=== PATIENT | female | born 1950 | race Caucasian/White ===

== ENCOUNTER 2020-05-11 15:52 | Inpatient (IN) | payer MEDICARE, OTHER ==
--- NOTE | 2020-05-11 16:18 | ER Document Report ---
ED Respiratory Problem - General Chief Complaint: Cough Stated Complaint: COUGH,SHORT OF BREATH,CHEST PAIN Time Seen by Provider: 05/11/20 16:14 Primary Care Provider: KRISTINE CONSTANTINO NP-C [Primary Care Provider] - Follow up as needed Notes: Patient is a 69-year-old female who presents emergency department with a chief complaint of cough, shortness of breath, and difficulty breathing for the past week. Patient states that she has body aches. Patient has history of pneumonia. She also has chronic back pain. Patient takes gabapentin, oxycodone as needed, and Prozac. - Related Data Allergies/Adverse Reactions: atorvastatin calcium [From Lipitor] Adverse Reaction (Mild, Verified 05/07/14 01:58) Stiffness in joints simvastatin [From Zocor] Adverse Reaction (Mild, Verified 05/07/14 01:58) Stiffness in joints Past Medical History - General Information source: Patient - Social History Smoking Status: Never Smoker Family History: None, Reviewed & Not Pertinent - Past Medical History Cardiac Medical History: Reports: Hx Hypercholesterolemia Pulmonary Medical History: Reports: Hx Pneumonia Musculoskeletal Medical History: Reports Hx Arthritis Psychiatric Medical History: Reports: Hx Depression Past Surgical History: Reports: Hx Cholecystectomy, Hx Orthopedic Surgery - hip, back, shoulders - Immunizations Hx Diphtheria, Pertussis, Tetanus Vaccination: Yes Review of Systems - Review of Systems Notes: REVIEW OF SYSTEMS: CONSTITUTIONAL : Denies recent illness. Denies recent unintentional weight loss. Denies fever, chills, or sweats. EENT: Denies eye, ear, throat, or mouth pain, discharge, or symptoms. Denies nasal or sinus congestion. CARDIOVASCULAR: Denies chest pain. RESPIRATORY: See HPI. GASTROINTESTINAL: Denies nausea, vomiting, and diarrhea. Denies abdominal pain. Denies constipation. GENITOURINARY: Denies difficulty urinating, burning, blood in urine, urgency or frequency. MUSCULOSKELETAL: Denies neck and back pain. Denies joint pain or swelling. SKIN: Denies rash, itchiness, or lesions HEMATOLOGIC : Denies easy bruising or bleeding. LYMPHATIC: Denies swollen, painful, enlarged glands. NEUROLOGICAL: Denies no numbness or tingling denies weakness. Denies headache. Denies altered mental status. Denies alteration in speech. PSYCHIATRIC: Denies stress, anxiety, alteration in sleep patterns, or depression. All other systems reviewed and negative. Physical Exam - Vital signs Vitals: Temp Pulse Resp BP Pulse Ox 98.5 F 88 20 152/73 H 86 L 05/11/20 16:21 05/11/20 16:21 05/11/20 16:21 05/11/20 16:21 05/11/20 16:21 - Notes Notes: PHYSICAL EXAMINATION: GENERAL: Appears well, healthy, well-nourished, no acute distress. HEAD: Normocephalic, atraumatic. EYES: PERRL, conjunctiva normal, all extraocular movements intact, sclera nonicteric ENT: Moist mucous membranes. NECK: Supple, no noticeable swelling, redness, rash. Normal range of motion. LUNGS: Diminished lung sounds in all lung chan. CARDIOVASCULAR: S1-S2, regular rate, regular rhythm. Radial pulses 2+, normal. ABDOMEN: Normoactive bowel sounds. Soft, nontender, no guarding, no rebound tenderness, and no masses palpated. EXTREMITIES: Normal strength and range of motion, no pitting or edema. No cyanosis. NEUROLOGICAL: Moves all extremities upon command. Strength 5/5 in all extremities. PSYCH: Normal mood, normal affect. SKIN: Warm, dry. No rash, lesions, ulcerations noted. Normal skin turgor. Course - Re-evaluation Re-evalutation: 05/11/20 18:24 Hematology is unremarkable. No leukocytosis noted. Coagulation studies are unremarkable. Blood gas shows PO2 62% on room air. Patient was placed on 2 L nasal cannula. Troponin is unremarkable. BNP is 618. Chemistries are unremarkable. Chest x-ray did not show any acute findings. CTA of the chest ordered. 05/11/20 20:43 CT of the chest shows groundglass opacities, consistent with possible COVID-19. I advised the patient that I would like her to be admitted. She states that she would to go home. I told her that if her oxygen saturation on room air while walking stays greater than 93% on room air, then I can send her home safely, but if her oxygen saturation drops, I prefer she be admitted. We will give her a gram of Rocephin. The patient was evaluated during the global COVID-19 pandemic and that diagnosis was suspected/considered upon their initial presentation. Their evaluation, treatment and testing was consistent with current guidelines for patients who present with complaints or symptoms that may be related to COVID-19. 05/11/20 20:51 Patient was walked in the room and oxygen saturation went down to 89% on room air. Patient then dropped further down to 82%, but then went up as she was put on 2 L of oxygen. Advised patient that she needs to be admitted for monitoring. - Vital Signs Vital signs: Temp Pulse Resp BP Pulse Ox 98.5 F 88 18 152/73 H 100 05/11/20 16:21 05/11/20 16:21 05/11/20 19:00 05/11/20 16:21 05/11/20 19:00 - Laboratory Result Diagrams: 05/11/20 17:25 05/11/20 17:25 Laboratory results interpreted by me: 05/11/20 05/11/20 05/11/20 17:20 17:25 17:25 Lymph % (Auto) 11.2 L Carbonic Acid 0.88 L ABG pH 7.49 H ABG pCO2 29.4 L ABG pO2 62.6 L ABG O2 Saturation 93.9 L Sodium 134.9 L NT-Pro-B Natriuret Pep 05/11/20 17:25 Lymph % (Auto) Carbonic Acid ABG pH ABG pCO2 ABG pO2 ABG O2 Saturation Sodium NT-Pro-B Natriuret Pep 618 H Discharge - Discharge Clinical Impression: Hypoxemia, Shortness of breath, Cough, Suspected COVID-19 virus infection Pneumonia Qualifiers: Pneumonia type: due to unspecified organism Laterality: unspecified laterality Lung location: unspecified part of lung Qualified Code(s): J18.9 - Pneumonia, unspecified organism Condition: Stable Disposition: ADMITTED INPATIENT Admitting Provider: Amando (Hospitalist) Unit Admitted: Medical Floor - COVID floor Referrals: KRISTINE CONSTANTINO NP-C [Primary Care Provider] - Follow up as needed
--- NOTE | 2020-05-11 16:58 | RADIOLOGY REPORT (SQ) ---
EXAM DESCRIPTION: CHEST SINGLE VIEW IMAGES COMPLETED DATE/TIME: 05/11/2020 4:37 pm REASON FOR STUDY: cough COMPARISON: 05/03/2014 EXAM PARAMETERS: NUMBER OF VIEWS: One view. TECHNIQUE: Single frontal radiographic view of the chest acquired. RADIATION DOSE: NA LIMITATIONS: None. FINDINGS: LUNGS AND PLEURA: No opacities, masses or pneumothorax. No pleural effusion. MEDIASTINUM AND HILAR STRUCTURES: No masses. Contour normal. HEART AND VASCULAR STRUCTURES: Heart normal in size. Normal vasculature. BONES: No acute findings. HARDWARE: None in the chest. OTHER: No other significant finding. IMPRESSION: NO ACUTE RADIOGRAPHIC FINDING IN THE CHEST. TECHNICAL DOCUMENTATION: JOB ID: [id number] 2010 [employer]- All Rights Reserved Reading location - IP/workstation name: [email or web address]
[2020-05-11 17:41] LABS: ARTERIAL BLOOD BASE EXCESS -0.3 mmol/L; ARTERIAL BLOOD FIO2 21%; ARTERIAL BLOOD H2CO3 0.88 mmol/L (1.05-1.35); ARTERIAL BLOOD HCO3 21.9 mmol/L (20-24); ARTERIAL BLOOD O2 SATURATION 93.9 % (94-98); ARTERIAL BLOOD PCO2 29.4 mmHg (35-45); ARTERIAL BLOOD PH 7.49 (7.35-7.45); ARTERIAL BLOOD PO2 62.6 mmHg (80-100); ARTERIAL BLOOD TOTAL CO2 22.8 mmol/L (21-25)
[2020-05-11 17:45] LABS: ABSOLUTE BASOPHILS # (AUTO) 0.1 10^3/uL (0.0-0.2); ABSOLUTE EOSINOPHILS # (AUTO) 0.2 10^3/uL (0.0-0.6); ABSOLUTE LYMPHOCYTES (AUTO) 0.9 10^3/uL (0.5-4.7); ABSOLUTE MONOCYTES (AUTO) 0.8 10^3/uL (0.1-1.4); EOSINOPHILS % (AUTO) 2.8 % (0-6); HEMATOCRIT 38.2 % (36.0-47.0); LYMPHOCYTES % (AUTO) 11.2 % (13-45); MEAN CORPUSCULAR HEMOGLOBIN 29.8 pg (27.0-33.4); MEAN CORPUSCULAR VOLUME 88 fl (80-97); MONOCYTES % (AUTO) 10.3 % (3-13); PLATELET COUNT 271 10^3/uL (150-450); RED BLOOD COUNT 4.35 10^6/uL (3.72-5.28); RED CELL DISTRIBUTION WIDTH 12.6 % (11.5-14.0); SEGMENTED NEUTROPHILS % (AUTO) 74.7 % (42-78); TOTAL CELLS COUNTED % (AUTO) 100 %; WHITE BLOOD COUNT 8.1 10^3/uL (4.0-10.5)
[2020-05-11 17:54] LABS: INTERNATIONAL RATION (INR) 1.02; PROTHROMBIN TIME 13.6 SEC (11.4-15.4)
[2020-05-11 17:55] LABS: PARTIAL THROMBOPLASTIN TIME 33.9 SEC (23.5-35.8)
[2020-05-11 18:01] LABS: ALBUMIN 3.7 g/dL (3.5-5.0); ALKALINE PHOSPHATASE 89 U/L (38-126); ANION GAP 6 (5-19); ASPARTATE AMINO TRANSFERASE 27 U/L (14-36); BILIRUBIN,DIRECT 0.3 mg/dL (0.0-0.4); BILIRUBIN,TOTAL 0.6 mg/dL (0.2-1.3); BLOOD UREA NITROGEN 19 mg/dL (7-20); CARBON DIOXIDE 25 mmol/L (22-30); CHLORIDE 104 mmol/L (98-107); GLUCOSE 99 mg/dL (75-110); TOTAL PROTEIN 6.4 g/dL (6.3-8.2)
[2020-05-11 18:12] LABS: NT PRO BNP 618 pg/mL (<125)
[2020-05-11 18:13] LABS: TROPONIN I < 0.012 ng/mL
--- NOTE | 2020-05-11 20:04 | RADIOLOGY REPORT (SQ) ---
EXAM DESCRIPTION: CTA CHEST IMAGES COMPLETED DATE/TIME: 05/11/2020 6:41 pm REASON FOR STUDY: cough; COMPARISON: Chest radiograph same date. Chest radiograph 05/03/2014 TECHNIQUE: CT scan of the chest performed using helical scanning technique with dynamic intravenous contrast injection. Images reviewed with lung, soft tissue and bone windows. Reconstructed coronal and sagittal MPR images reviewed. Additional 3 dimensional post-processing performed to develop Maximal Intensity Projection images (SC P). All images stored on PACS. All CT scanners at this facility use dose modulation, iterative reconstruction, and/or weight based d osing when appropriate to reduce radiation dose to as low as reasonably achievable (ALARA). [facility]: Dose Right [facility]: CareDose [facility]: Dose Right [facility]: Teradose 4D [facility]: apomio CONTRAST TYPE AND DOSE: contrast/concentration: Isovue 350.00 mmol/ml; Total Contrast Delivered: 65. 0 ml; Total Saline Delivered: 33.7 ml Contrast bolus optimized for the pulmonary arteries. Not diagnostic for the aorta. RENAL FUNCTION: GFR > 60. RADIATION DOSE: CT Rad equipment meets quality standard of care and radiation dose reduction techniq ues were employed. CTDIvol: 13.2 - 31.4 mGy. DLP: 1199 mGy-cm. . LIMITATIONS: None. FINDINGS: LUNGS AND PLEURA: Trachea has normal caliber and appearance. There is diffuse ground-glas s attenuation in the upper lobes bilaterally and superior segments lower lobes. No focal confluent c onsolidation. No pleural effusion or pneumothorax. AORTA AND GREAT VESSELS: No aneurysm. Contrast bolus not optimized for the aorta. HEART: No pericardial effusion. No significant coronary artery calcifications. PULMONARY ARTERIES: No emboli visualized in the main pulmonary arteries or the segmental branches. HILAR AND MEDIASTINAL STRUCTURES: No identified masses or abnormal nodes. HARDWARE: None in the chest. UPPER ABDOMEN: No significant findings. Limited exam. THYROID AND OTHER SOFT TISSUES: No masses. No adenopathy. BONES: No acute or significant finding. 3D MIPS: Confirm above findings. OTHER: No other significant finding. IMPRESSION: 1. Diffuse patchy areas of ground-glass attenuation predominantly upper lobe distribution consistent with infectious/ inflammatory process. Commonly reported imaging features of COVID-19 pneumonia ar e present. Other processes such as influenza pneumonia and organizing pneumonia, as can be seen with drug toxicity and connective tissue disease, can cause a similar imaging pattern. 2. No pulmonary embolism. COMMENT: Quality ID # [id number]: Final reports with documentation of one or more dose reduction techniques (e.g., Automated exposure control, adjustment of the mA and/or kV according to patient size, use of iterative reconstruction technique) TECHNICAL DOCUMENTATION: JOB ID: [id number] 2010 [employer]- All Rights Reserved Reading location - IP/workstation name: [email or web address]
[2020-05-11] MEDS ORDERED: AZITHROMYCIN 250 MG TABLET PO ONE (20:52)
[2020-05-11] MEDS ORDERED: CEFTRIAXONE 1 GM/D5W RTU 1 GM/50 ML RTUPB IV ONE (21:30)
[2020-05-11] MEDS ORDERED: ALBUTEROL SULFATE HFA (90 MCG/PUFF) 8 GM MDI IH PRN (21:33)
[2020-05-11] MEDS ORDERED: ACETAMINOPHEN 325 MG TABLET PO PRN (21:33)
[2020-05-11] MEDS ORDERED: GUAIFENESIN SYRP 200 MG/10 ML UDC PO PRN (21:33)
[2020-05-11] MEDS ORDERED: MELATONIN 5 MG TABLET PO PRN (21:41)
[2020-05-11] MEDS ORDERED: MORPHINE SULFATE 10 MG/ML INJ IV PRN ×4 (21:41→22:02)
[2020-05-11] MEDS ORDERED: MAG HYDROX/AL HYDROX/SIMETH SUSP 30 ML UDCUP PO PRN (21:41)
[2020-05-11] MEDS ORDERED: MAGNESIUM HYDROXIDE SUSP 30 ML UDCUP PO PRN (21:41)
[2020-05-11] MEDS ORDERED: LORAZEPAM INJ 2 MG/1 ML VIAL IV PRN (21:41)
[2020-05-11] MEDS ORDERED: DEXAMETHASONE SOD PHOS INJ 10 MG/1 ML VIAL IV ONE (21:42)
[2020-05-11] MEDS: FAMOTIDINE 20 MG TABLET PO SCH (22:17)
[2020-05-11] MEDS: HEPARIN SOD (PORCINE) 5,000 UNIT/ML 1 ML VIAL SUBCUT SCH (22:17)
[2020-05-12] MEDS: HEPARIN SOD (PORCINE) 5,000 UNIT/ML 1 ML VIAL SUBCUT SCH ×3 (05:16→21:30)
[2020-05-12 05:47] LABS: HEMATOCRIT 37.8 % (36.0-47.0); HEMOGLOBIN 13.3 g/dL (12.0-15.5); MEAN CORPUSCULAR HEMOGLOBIN 30.5 pg (27.0-33.4); MEAN CORPUSCULAR HGB CONC 35.3 g/dL (32.0-36.0); MEAN CORPUSCULAR VOLUME 86 fl (80-97); PLATELET COUNT 254 10^3/uL (150-450); RED BLOOD COUNT 4.38 10^6/uL (3.72-5.28); RED CELL DISTRIBUTION WIDTH 12.8 % (11.5-14.0); WHITE BLOOD COUNT 5.4 10^3/uL (4.0-10.5)
[2020-05-12] MEDS ORDERED: DEXAMETHASONE SOD PHOSPHATE INJ 4 MG/1 ML VIAL IV SCH (06:00)
[2020-05-12 06:17] LABS: ANION GAP 8 (5-19); BLOOD UREA NITROGEN 16 mg/dL (7-20); CALCIUM 9.4 mg/dL (8.4-10.2); CARBON DIOXIDE 25 mmol/L (22-30); CHLORIDE 105 mmol/L (98-107); GLUCOSE 220 mg/dL (75-110); POTASSIUM 3.8 mmol/L (3.6-5.0)
--- NOTE | 2020-05-12 06:35 | PDOC H&P ---
History of Present Illness Admission Date/PCP: 05/11/2020 21:13 KAYODE BERRIOS Patient complains of: Dyspnea History of Present Illness: NOEMÍ VIRK is a 69 year old female who presented emergency room with a one- week history of dyspnea. She admits gradually worsening dyspnea, now moderate, over the course of the last week accompanied by a nonproductive cough, associated with ague and worsened by exertion. She denies other associated or accompanying signs and symptoms. She admits prior similar symptoms with a pneumonia. She has not identified any additional aggravating or ameliorating factors for her dyspnea. In the emergency room she was found to have a PO2 of 62 on room air and a CT of her chest showed bilateral groundglass infiltrates. A COVID-19 test was performed and the patient was subsequently admitted to the hospital for further evaluation and treatment. Past Medical History Cardiac Medical History: Reports: Hyperlipidema Denies: Atrial Fibrillation, Coronary Artery Disease, DVT, Myocardial Infarction, Hypertension, Peripheral Vascular Disease, Pulmonary Embolism Pulmonary Medical History: Reports: Pneumonia Denies: Asthma, Chronic Obstructive Pulmonary Disease (COPD) EENT Medical History: Denies: Cataracts, Ears - Hearing aids Neurological Medical History: Denies: Hemorrhagic CVA, Ischemic CVA, Seizures Endocrine Medical History: Reports: Obesity Denies: Diabetes Mellitus Type 1, Diabetes Mellitus Type 2, Hyperthyroidism, Hypothyroidism Renal/ Medical History: Denies: Chronic Kidney Disease, Nephrolithiasis Malignancy Medical History: Reports: None GI Medical History: Denies: Cirrhosis, Hepatitis, Peptic Ulcer Disease Musculoskeltal Medical History: Reports: Arthritis, Other - Chronic back pain Skin Medical History: Denies: Eczema, Psoriasis Psychiatric Medical History: Reports: Depression Denies: Alcohol Dependency, Substance Abuse, Tobacco Dependency Traumatic Medical History: Reports: None Hematology: Denies: Anemia, Bleeding Tendencies Infectious Medical History: Reports: None Past Surgical History Past Surgical History: Reports: Cholecystectomy, Orthopedic Surgery - hip, back, shoulders Social History Information Source: Patient Lives with: Family Smoking Status: Never Smoker Electronic Cigarette use?: No Frequency of Alcohol Use: None Hx Recreational Drug Use: No Drugs: None Hx Prescription Drug Abuse: No - Advance Directive Resuscitation Status: Full Code Surrogate healthcare decision maker:: Karen Eason Family History Family History: Hypertension. denies: CAD, DM, Malignancy Parental Family History Reviewed: Yes Children Family History Reviewed: No Sibling(s) Family History Reviewed.: Yes Medication/Allergy Home Medications: Clonazepam [Klonopin 1 mg Tablet Rapid Dissolve] 1 mg PO BID 04/19/14 Oxycodone HCl/Acetaminophen [Oxycodone-Acetaminophen 10-325] 1 each PO Q4H PRN 04/19/14 Rosuvastatin Calcium [Crestor 10 mg Tablet] 10 mg PO DAILY 04/19/14 Albuterol Sulfate [Proair HFA] 2 puff IH Q6 04/24/14 Baicalin/Catechin [Limbrel 500 mg Capsule] 500 mg PO BID 04/24/14 Docusate Sodium [Colace 100 mg Capsule] 300 mg PO DAILY 04/30/14 Ibuprofen [Motrin 400 mg Tablet] 400 mg PO Q4H PRN 04/30/14 Melatonin/Pyridoxine HCl (B6) [Melatonin Tr 10 mg Tablet] 10 mg PO QHS 04/30/14 Fluoxetine HCl [Prozac 20 mg Capsule] 60 mg PO DAILY 05/01/14 Omeprazole 20 mg PO QAM #30 tablet. 05/07/14 Allergies/Adverse Reactions: atorvastatin calcium [From Lipitor] Adverse Reaction (Mild, Verified 05/07/14 01:58) Stiffness in joints simvastatin [From Zocor] Adverse Reaction (Mild, Verified 05/07/14 01:58) Stiffness in joints Review of Systems Constitutional: PRESENT: other - Ague. ABSENT: chills, fever(s) Eyes: ABSENT: visual disturbances, other - Eye pain Ears: ABSENT: hearing changes, other - Ear pain Nose, Mouth, and Throat: ABSENT: headache(s), sore throat Cardiovascular: PRESENT: as per HPI, dyspnea on exertion. ABSENT: chest pain, edema, orthropnea, palpitations Respiratory: PRESENT: as per HPI, cough, dyspnea. ABSENT: hemoptysis, sputum Gastrointestinal: ABSENT: abdominal pain, constipation, diarrhea, nausea, vomiting Genitourinary: ABSENT: dysuria, hematuria Musculoskeletal: PRESENT: back pain - Chronic. ABSENT: joint swelling, muscle weakness Integumentary: ABSENT: pruritus, rash Neurological: ABSENT: confusion, convulsions, focal weakness, memory loss, syncope Psychiatric: ABSENT: anxiety, depression Endocrine: ABSENT: cold intolerance, heat intolerance Hematologic/Lymphatic: ABSENT: easy bleeding, easy bruising Allergic/Immunologic: ABSENT: seasonal rhinorrhea Physical Exam Vital Signs: Temp Pulse Resp BP Pulse Ox 98.5 F 88 18 152/73 H 100 05/11/20 16:21 05/11/20 16:21 05/11/20 19:00 05/11/20 16:21 05/11/20 19:00 Intake & Output 05/09/20 05/10/20 05/11/20 23:59 23:59 23:59 Weight 90.718 kg General appearance: PRESENT: no acute distress, cooperative, other - On supplem ental oxygen via nasal cannula at the time of my evaluation Head exam: PRESENT: atraumatic, normocephalic Eye exam: PRESENT: conjunctiva pink. ABSENT: conjunctival injection, scleral icterus Ear exam: PRESENT: normal external ear exam. ABSENT: bleeding, drainage Mouth exam: PRESENT: dry mucosa, neck supple Neck exam: ABSENT: thyromegaly, tracheal deviation Respiratory exam: PRESENT: clear to auscultation wil, symmetrical, unlabored Cardiovascular exam: PRESENT: RRR. ABSENT: clicks, gallop, rubs Pulses: PRESENT: normal radial pulses, normal dorsalis pedis pul Vascular exam: PRESENT: normal capillary refill. ABSENT: pallor GI/Abdominal exam: PRESENT: normal bowel sounds, soft. ABSENT: tenderness Rectal exam: PRESENT: deferred Extremities exam: ABSENT: joint swelling, pedal edema Musculoskeletal exam: ABSENT: deformity, dislocation Neurological exam: PRESENT: alert, oriented to person, oriented to place, oriented to time, oriented to situation, CN II-XII grossly intact. ABSENT: motor sensory deficit Psychiatric exam: PRESENT: appropriate affect, normal mood Skin exam: PRESENT: dry, intact, warm. ABSENT: jaundice, rash, urticaria Results Laboratory Results: 05/11/20 17:25 05/11/20 17:25 05/11/20 05/11/20 05/11/20 17:20 17:25 17:25 WBC 8.1 RBC 4.35 Hgb 13.0 Hct 38.2 MCV 88 MCH 29.8 MCHC 34.0 RDW 12.6 Plt Count 271 Seg Neutrophils % 74.7 Carbonic Acid 0.88 L HCO3/H2CO3 Ratio 24:1 ABG pH 7.49 H ABG pCO2 29.4 L ABG pO2 62.6 L ABG HCO3 21.9 ABG O2 Saturation 93.9 L ABG Base Excess -0.3 FiO2 21% Sodium 134.9 L Potassium 4.0 Chloride 104 Carbon Dioxide 25 Anion Gap 6 BUN 19 Creatinine 0.89 Est GFR ( Amer) > 60 Glucose 99 Calcium 9.0 Total Bilirubin 0.6 AST 27 Alkaline Phosphatase 89 Total Protein 6.4 Albumin 3.7 05/11/20 17:25 Troponin I < 0.012 NT-Pro-B Natriuret Pep 618 H Impressions: Chest X-Ray 05/11/20 16:17 IMPRESSION: NO ACUTE RADIOGRAPHIC FINDING IN THE CHEST. Chest/Abdomen CTA 05/11/20 17:14 IMPRESSION: 1. Diffuse patchy areas of ground-glass attenuation predominantly upper lobe distribution consistent with infectious/ inflammatory process. Commonly reported imaging features of COVID-19 pneumonia are present. Other processes such as influenza pneumonia and organizing pneumonia, as can be seen with drug toxicity and connective tissue disease, can cause a similar imaging pattern. 2. No pulmonary embolism. Assessment and Plan - Diagnosis (1) Multifocal pneumonia Is this a current diagnosis for this admission?: Yes (2) Acute respiratory failure with hypoxia Is this a current diagnosis for this admission?: Yes (3) Suspected COVID-19 virus infection Is this a current diagnosis for this admission?: Yes (4) Hyperlipidemia Qualifiers: Hyperlipidemia type: unspecified Qualified Code(s): E78.5 - Hyperlipidemia, unspecified Is this a current diagnosis for this admission?: Yes (5) Polyarticular osteoarthritis Is this a current diagnosis for this admission?: Yes (6) Chronic back pain Qualifiers: Back pain location: back pain in unspecified location Back pain laterality: unspecified Qualified Code(s): M54.9 - Dorsalgia, unspecified; G89.29 - Other chronic pain Is this a current diagnosis for this admission?: Yes (7) Obesity Qualifiers: Obesity classification: adult class 1 (BMI 30 - 34.9) Serious obesity comorbidity presence: unspecified whether serious comorbidity present Is this a current diagnosis for this admission?: Yes (8) Depression Qualifiers: Depression Type: unspecified Qualified Code(s): F32.9 - Major depressive disorder, single episode, unspecified Is this a current diagnosis for this admission?: Yes - Plan Summary Summary: Patient will be admitted to medical floor where she received routine supportive and symptomatic cares. She will receive supplemental oxygen via nasal cannula as needed to maintain an adequate oxygen saturation level. She will receive IV antibiotics utilizing Zithromax and Rocephin. She will be treated with dexamethasone with initial 10 mg dose IV followed by 2 mg IV every 8 hours. She will receive Ativan 1 mg IV every 4 hours as needed for anxiety or restlessness. She will receive morphine sulfate 2 to 4 mg IV every 2 hours as needed for pain. Her usual home medications will be restarted, as appropriate, when her medication list has been verified and reconciled. CBCs, metabolic profiles and additional laboratory and/or radiographic evaluations will be obtained as appropriate. - Time Time Spent with patient: Less than 15 minutes Medications reviewed and adjusted accordingly: Yes Anticipated Discharge Disposition: Home, Self Care Anticipated Discharge Timeframe: within 72 hours - Inpatient Certification Based on my medical assessment, after consideration of the patient's comorbidities, presenting symptoms, or acuity I expect that the services needed warrant INPATIENT care.: Yes I certify that my determination is in accordance with my understanding of Medicare's requirements for reasonable and necessary INPATIENT services [42 CFR 412.3e].: Yes Medical Necessity: Need Close Monitoring Due to Risk of Patient Decompensation, Risk of Complication if Not Cared For in Hospital
[2020-05-12 09:04] LABS: ABSOLUTE LYMPHOCYTES (AUTO) 0.3 10^3/uL (0.5-4.7); ABSOLUTE MONOCYTES (AUTO) 0.1 10^3/uL (0.1-1.4); ABSOLUTE NEUT (AUTO) 4.8 10^3/uL (1.7-8.2); BASOPHILS % (AUTO) 0.6 % (0-2); HEMOGLOBIN 13.8 g/dL (12.0-15.5); LYMPHOCYTES % (AUTO) 6.3 % (13-45); MEAN CORPUSCULAR HEMOGLOBIN 30.6 pg (27.0-33.4); MEAN CORPUSCULAR HGB CONC 35.3 g/dL (32.0-36.0); MEAN CORPUSCULAR VOLUME 87 fl (80-97); MONOCYTES % (AUTO) 2.4 % (3-13); PLATELET COUNT 287 10^3/uL (150-450); RED CELL DISTRIBUTION WIDTH 12.6 % (11.5-14.0); SEGMENTED NEUTROPHILS % (AUTO) 90.7 % (42-78); TOTAL CELLS COUNTED % (AUTO) 100 %; WHITE BLOOD COUNT 5.3 10^3/uL (4.0-10.5)
[2020-05-12 09:26] LABS: ALKALINE PHOSPHATASE 96 U/L (38-126); ANION GAP 8 (5-19); ASPARTATE AMINO TRANSFERASE 26 U/L (14-36); BILIRUBIN,DIRECT 0.3 mg/dL (0.0-0.4); BILIRUBIN,TOTAL 0.5 mg/dL (0.2-1.3); BLOOD UREA NITROGEN 17 mg/dL (7-20); C-REACTIVE PROTEIN 73.2 mg/L (<10.0); CALCIUM 9.8 mg/dL (8.4-10.2); CARBON DIOXIDE 27 mmol/L (22-30); CHLORIDE 104 mmol/L (98-107); GLUCOSE 191 mg/dL (75-110); POTASSIUM 4.1 mmol/L (3.6-5.0); TOTAL PROTEIN 7.2 g/dL (6.3-8.2)
[2020-05-12] MEDS: DOCUSATE SODIUM 100 MG CAPSULE PO SCH ×3 (10:02→18:01)
[2020-05-12] MEDS: CHOLECALCIFEROL (D3) 400 UNIT TABLET PO SCH (10:03)
[2020-05-12] MEDS: ZINC SULFATE 220 MG CAPSULE PO SCH (10:03)
[2020-05-12] MEDS: DEXAMETHASONE SOD PHOS INJ 10 MG/1 ML VIAL IV SCH (10:03)
[2020-05-12] MEDS: FAMOTIDINE 20 MG TABLET PO SCH ×2 (10:03→21:31)
[2020-05-12] MEDS: ASCORBIC ACID 500 MG TABLET PO SCH ×2 (10:03→17:39)
[2020-05-12] MEDS ORDERED: OXYCODONE HCL IR 5 MG TABLET PO PRN (16:05)
[2020-05-12] MEDS: GABAPENTIN 400 MG CAPSULE PO SCH (17:39)
[2020-05-12] MEDS: HYDROXYZINE HCL 10 MG TABLET PO SCH (17:39)
[2020-05-12] MEDS: BUSPIRONE HCL 10 MG TABLET PO SCH (17:39)
--- NOTE | 2020-05-12 20:22 | EKG REPORT ---
SEVERITY:- NORMAL ECG - SINUS RHYTHM : Confirmed by: Danika Mar 12-May-2020 20:21:24
--- NOTE | 2020-05-12 21:20 | PDOC PROGRESS REPORT ---
Subjective Progress Note for:: 05/12/20 Subjective:: NOEMÍ VIRK is a 69 year old female who presented emergency room with a one- week history of dyspnea. She admits gradually worsening dyspnea, now moderate, over the course of the last week accompanied by a nonproductive cough, associated with ague and worsened by exertion. She denies other associated or accompanying signs and symptoms. She admits prior similar symptoms with a pneumonia. She has not identified any additional aggravating or ameliorating factors for her dyspnea. In the emergency room she was found to have a PO2 of 62 on room air and a CT of her chest showed bilateral groundglass infiltrates. A COVID-19 test was performed and the patient was subsequently admitted to the hospital for further evaluation and treatment. D1 hospital stay 05/12/20. She was seen and examined at bedside. She still reports shortness of breath that has improved since being started on oxygen. Still with cough. Afebrile, denies diarrhea, appetite good. She is currently on 3 L of oxygen via nasal cannula saturating 99%. COVID test pending. CBC unremarkable. CMP unremarkable besides elevated glucose. CRP 73.2 elevated, ferritin 243 normal, d-dimer 0.39 normal, BNP 618 high. Ordered convalescent plasma and remdesivir. CT scan showed diffuse patchy areas of groundglass attenuation predominantly upper lobe distribution consistent with infectious process. Reason For Visit: MULTIFOCAL PNEUMONIA,ACUTE RESPIRATORY FAILURE WIT Physical Exam Vital Signs: Temp Pulse Resp BP Pulse Ox 98.3 F 76 18 136/60 H 99 05/12/20 16:17 05/12/20 16:17 05/12/20 16:17 05/12/20 16:17 05/12/20 16:17 Intake & Output 05/11/20 05/12/20 05/13/20 06:59 06:59 06:59 Intake Total 150 480 Balance 150 480 Weight 94.4 kg General appearance: PRESENT: cooperative, mild distress Head exam: PRESENT: atraumatic, normocephalic Eye exam: PRESENT: EOMI, PERRLA Ear exam: PRESENT: normal external ear exam Mouth exam: PRESENT: moist Neck exam: PRESENT: full ROM Respiratory exam: PRESENT: rales, symmetrical, unlabored. ABSENT: wheezes Cardiovascular exam: PRESENT: RRR, +S1, +S2 Pulses: PRESENT: +2 pedal pulses bilateral GI/Abdominal exam: PRESENT: normal bowel sounds, soft. ABSENT: rebound, t enderness Extremities exam: PRESENT: full ROM. ABSENT: +2 edema Musculoskeletal exam: PRESENT: full ROM Neurological exam: PRESENT: alert, awake, oriented to person, oriented to place, oriented to time, oriented to situation Psychiatric exam: PRESENT: appropriate affect, normal mood Skin exam: PRESENT: normal color Results Laboratory Results: 05/12/20 08:28 05/12/20 08:28 05/12/20 05/12/20 05/12/20 05:31 05:31 08:28 WBC 5.4 5.3 RBC 4.38 4.50 Hgb 13.3 13.8 Hct 37.8 39.0 MCV 86 87 MCH 30.5 30.6 MCHC 35.3 35.3 RDW 12.8 12.6 Plt Count 254 287 Seg Neutrophils % 90.7 H Sodium 138.4 Potassium 3.8 Chloride 105 Carbon Dioxide 25 Anion Gap 8 BUN 16 Creatinine 0.84 Est GFR ( Amer) > 60 Glucose 220 H Calcium 9.4 Ferritin Total Bilirubin AST Alkaline Phosphatase C-Reactive Protein Total Protein Albumin Blood Type 05/12/20 05/12/20 08:28 13:07 WBC RBC Hgb Hct MCV MCH MCHC RDW Plt Count Seg Neutrophils % Sodium 138.9 Potassium 4.1 Chloride 104 Carbon Dioxide 27 Anion Gap 8 BUN 17 Creatinine 0.76 Est GFR ( Amer) > 60 Glucose 191 H Calcium 9.8 Ferritin 243.00 Total Bilirubin 0.5 AST 26 Alkaline Phosphatase 96 C-Reactive Protein 73.2 H Total Protein 7.2 Albumin 4.0 Blood Type O POSITIVE 05/11/20 17:25 Troponin I < 0.012 NT-Pro-B Natriuret Pep 618 H Impressions: Chest X-Ray 05/11/20 16:17 IMPRESSION: NO ACUTE RADIOGRAPHIC FINDING IN THE CHEST. Chest/Abdomen CTA 05/11/20 17:14 IMPRESSION: 1. Diffuse patchy areas of ground-glass attenuation predominantly upper lobe distribution consistent with infectious/ inflammatory process. Commonly reported imaging features of COVID-19 pneumonia are present. Other processes such as influenza pneumonia and organizing pneumonia, as can be seen with drug toxicity and connective tissue disease, can cause a similar imaging pattern. 2. No pulmonary embolism. Assessment and Plan - Diagnosis (1) Acute respiratory failure with hypoxia Is this a current diagnosis for this admission?: Yes Plan: - 2/2 COVID pneumonia -CT chest diffuse patchy areas of groundglass attenuation predominantly upper l obe distribution consistent with infectious process commonly seen in COVID-19 pneumonia. -Continue O2 support via nasal cannula (2) Pneumonia due to COVID-19 virus Is this a current diagnosis for this admission?: Yes Plan: -Came in due to 1 week history of dyspnea nonproductive cough generalized fatigue. -No known COVID exposure -CT findings diffuse patchy areas of groundglass attenuation predominantly upper lobe distribution consistent with infectious process commonly seen in COVID-19 pneumonia. - CRP 73.2 elevated, ferritin 243 normal, d-dimer 0.39 normal, BNP 618 high -Given age, and increasing oxygen needs, and current CT findings, there is a high likelihood that she does have COVID pneumonia -COVID pending -Procalcitonin pending -Continue isolation -Empiric antibiotics pending blood culture -Start vitamin C, vitamin D, zinc -Started on dexamethasone 6 mg IV daily - ordered convalescent plasma - ordered remdesivir -Patient aware of poor prognosis due to her age, obesity, and other comorbidities. (3) Chronic back pain Qualifiers: Back pain location: back pain in unspecified location Back pain laterality: unspecified Qualified Code(s): M54.9 - Dorsalgia, unspecified; G89.29 - Other chronic pain Is this a current diagnosis for this admission?: Yes Plan: -Takes oxycodone 5 mg IR as needed for back pain -resumed (4) Hyperlipidemia Qualifiers: Hyperlipidemia type: unspecified Qualified Code(s): E78.5 - Hyperlipidemia, unspecified Is this a current diagnosis for this admission?: Yes Plan: -crestor resumed (5) Depression Qualifiers: Depression Type: unspecified Qualified Code(s): F32.9 - Major depressive disorder, single episode, unspecified Is this a current diagnosis for this admission?: Yes Plan: -Fluoxetine and buspirone resumed (6) Hypothyroidism Qualifiers: Hypothyroidism type: unspecified Qualified Code(s): E03.9 - Hypothyroidism, unspecified Is this a current diagnosis for this admission?: Yes Plan: -Levothyroxine resumed - Plan Summary Summary: Patient will be admitted to medical floor where she received routine supportive and symptomatic cares. She will receive supplemental oxygen via nasal cannula as needed to maintain an adequate oxygen saturation level. She will receive IV antibiotics utilizing Zithromax and Rocephin. She will be treated with dexamethasone with initial 10 mg dose IV followed by 2 mg IV every 8 hours. She will receive Ativan 1 mg IV every 4 hours as needed for anxiety or restlessness. She will receive morphine sulfate 2 to 4 mg IV every 2 hours as needed for pain. Her usual home medications will be restarted, as appropriate, when her medication list has been verified and reconciled. CBCs, metabolic profiles and additional laboratory and/or radiographic evaluations will be obtained as appropriate. - Time Time Spent with patient: 35 or more minutes Medications reviewed and adjusted accordingly: Yes Anticipated Discharge Disposition: Home, Self Care Anticipated Discharge Timeframe: to be determined - Inpatient Certification Medical Necessity: Risk of Complication if Not Cared For in Hospital
[2020-05-12] MEDS: AZITHROMYCIN 500 MG in DEXTROSE 5%-WATER 250 ML IV SCH (21:29)
[2020-05-12] MEDS: CEFTRIAXONE 1 GM/D5W RTU 1 GM/50 ML RTUPB IV SCH (21:29)
[2020-05-13] MEDS: HEPARIN SOD (PORCINE) 5,000 UNIT/ML 1 ML VIAL SUBCUT SCH ×3 (05:54→21:36)
[2020-05-13] MEDS: LEVOTHYROXINE SODIUM 0.075 MG TABLET PO SCH (05:55)
[2020-05-13 09:24] LABS: ABSOLUTE BASOPHILS # (AUTO) 0.1 10^3/uL (0.0-0.2); ABSOLUTE MONOCYTES (AUTO) 0.7 10^3/uL (0.1-1.4); ABSOLUTE NEUT (AUTO) 8.6 10^3/uL (1.7-8.2); BASOPHILS % (AUTO) 0.5 % (0-2); EOSINOPHILS % (AUTO) 0.2 % (0-6); HEMATOCRIT 38.9 % (36.0-47.0); HEMOGLOBIN 13.4 g/dL (12.0-15.5); LYMPHOCYTES % (AUTO) 9.6 % (13-45); MEAN CORPUSCULAR HEMOGLOBIN 29.9 pg (27.0-33.4); MEAN CORPUSCULAR HGB CONC 34.3 g/dL (32.0-36.0); MEAN CORPUSCULAR VOLUME 87 fl (80-97); MONOCYTES % (AUTO) 7.1 % (3-13); PLATELET COUNT 312 10^3/uL (150-450); RED BLOOD COUNT 4.47 10^6/uL (3.72-5.28); RED CELL DISTRIBUTION WIDTH 12.6 % (11.5-14.0); SEGMENTED NEUTROPHILS % (AUTO) 82.6 % (42-78); TOTAL CELLS COUNTED % (AUTO) 100 %; WHITE BLOOD COUNT 10.5 10^3/uL (4.0-10.5)
[2020-05-13] MEDS: DEXAMETHASONE SOD PHOS INJ 10 MG/1 ML VIAL IV SCH (09:25)
[2020-05-13] MEDS: FLUOXETINE HCL 20 MG CAPSULE PO SCH (09:30)
[2020-05-13] MEDS: CHOLECALCIFEROL (D3) 400 UNIT TABLET PO SCH (09:30)
[2020-05-13] MEDS: ZINC SULFATE 220 MG CAPSULE PO SCH (09:30)
[2020-05-13] MEDS: GABAPENTIN 400 MG CAPSULE PO SCH ×2 (09:30→17:10)
[2020-05-13] MEDS: ASCORBIC ACID 500 MG TABLET PO SCH ×2 (09:30→17:10)
[2020-05-13] MEDS: BUSPIRONE HCL 10 MG TABLET PO SCH ×3 (09:30→17:10)
[2020-05-13] MEDS: FAMOTIDINE 20 MG TABLET PO SCH ×2 (09:31→21:37)
[2020-05-13 09:42] LABS: ALBUMIN 3.5 g/dL (3.5-5.0); ALKALINE PHOSPHATASE 79 U/L (38-126); ANION GAP 8 (5-19); ASPARTATE AMINO TRANSFERASE 23 U/L (14-36); BILIRUBIN,DIRECT 0.3 mg/dL (0.0-0.4); BILIRUBIN,TOTAL 0.4 mg/dL (0.2-1.3); BLOOD UREA NITROGEN 20 mg/dL (7-20); CALCIUM 9.1 mg/dL (8.4-10.2); CARBON DIOXIDE 26 mmol/L (22-30); CHLORIDE 104 mmol/L (98-107); GLUCOSE 111 mg/dL (75-110); POTASSIUM 3.4 mmol/L (3.6-5.0); TOTAL PROTEIN 6.4 g/dL (6.3-8.2)
[2020-05-13] MEDS: DOCUSATE SODIUM 100 MG CAPSULE PO SCH ×2 (09:43→17:32)
[2020-05-13] MEDS ORDERED: IPRATROPIUM/ALBUTEROL 0.5-2.5 MG/3 ML AMPUL NEB PRN (10:00)
[2020-05-13] MEDS: HYDROXYZINE HCL 10 MG TABLET PO SCH ×2 (12:05→17:10)
--- NOTE | 2020-05-13 15:39 | PDOC PROGRESS REPORT ---
Subjective Progress Note for:: 05/13/20 Subjective:: NOEMÍ VIRK is a 69 year old female who presented emergency room with a one- week history of dyspnea. She admits gradually worsening dyspnea, now moderate, over the course of the last week accompanied by a nonproductive cough, associated with ague and worsened by exertion. She denies other associated or accompanying signs and symptoms. She admits prior similar symptoms with a pneumonia. She has not identified any additional aggravating or ameliorating factors for her dyspnea. In the emergency room she was found to have a PO2 of 62 on room air and a CT of her chest showed bilateral groundglass infiltrates. A COVID-19 test was performed and the patient was subsequently admitted to the hospital for further evaluation and treatment. D1 hospital stay 05/12/20. She was seen and examined at bedside. She still reports shortness of breath that has improved since being started on oxygen. Still with cough. Afebrile, denies diarrhea, appetite good. She is currently on 3 L of oxygen via nasal cannula saturating 99%. COVID test pending. CBC unremarkable. CMP unremarkable besides elevated glucose. CRP 73.2 elevated, ferritin 243 normal, d-dimer 0.39 normal, BNP 618 high. Ordered convalescent plasma and remdesivir. CT scan showed diffuse patchy areas of groundglass attenuation predominantly upper lobe distribution consistent with infectious process. Reason For Visit: MULTIFOCAL PNEUMONIA,ACUTE RESPIRATORY FAILURE WIT Physical Exam Vital Signs: Temp Pulse Resp BP Pulse Ox 98.3 F 69 18 114/52 L 100 05/13/20 14:13 05/13/20 14:13 05/13/20 14:13 05/13/20 14:13 05/13/20 14:13 Intake & Output 05/12/20 05/13/20 05/14/20 06:59 06:59 06:59 Intake Total 150 1180 Balance 150 1180 Weight 94.4 kg 95.2 kg General appearance: PRESENT: mild distress Head exam: PRESENT: atraumatic, normocephalic Eye exam: PRESENT: EOMI, PERRLA Results Laboratory Results: 05/13/20 08:39 05/13/20 08:39 05/13/20 05/13/20 08:39 08:39 WBC 10.5 RBC 4.47 Hgb 13.4 Hct 38.9 MCV 87 MCH 29.9 MCHC 34.3 RDW 12.6 Plt Count 312 Seg Neutrophils % 82.6 H Sodium 138.1 Potassium 3.4 L Chloride 104 Carbon Dioxide 26 Anion Gap 8 BUN 20 Creatinine 0.85 Est GFR ( Amer) > 60 Glucose 111 H Calcium 9.1 Total Bilirubin 0.4 AST 23 Alkaline Phosphatase 79 Total Protein 6.4 Albumin 3.5 05/11/20 05/13/20 17:25 08:39 Troponin I < 0.012 < 0.012 NT-Pro-B Natriuret Pep 618 H Impressions: Chest X-Ray 05/11/20 16:17 IMPRESSION: NO ACUTE RADIOGRAPHIC FINDING IN THE CHEST. Chest/Abdomen CTA 05/11/20 17:14 IMPRESSION: 1. Diffuse patchy areas of ground-glass attenuation predominantly upper lobe distribution consistent with infectious/ inflammatory process. Commonly reported imaging features of COVID-19 pneumonia are present. Other processes such as influenza pneumonia and organizing pneumonia, as can be seen with drug t oxicity and connective tissue disease, can cause a similar imaging pattern. 2. No pulmonary embolism. Assessment and Plan - Diagnosis (1) Acute respiratory failure with hypoxia Is this a current diagnosis for this admission?: Yes (2) Pneumonia due to COVID-19 virus Is this a current diagnosis for this admission?: Yes (3) Chronic back pain Qualifiers: Back pain location: back pain in unspecified location Back pain laterality: unspecified Qualified Code(s): M54.9 - Dorsalgia, unspecified; G89.29 - Other chronic pain Is this a current diagnosis for this admission?: Yes (4) Hyperlipidemia Qualifiers: Hyperlipidemia type: unspecified Qualified Code(s): E78.5 - Hyperlipidemia, unspecified Is this a current diagnosis for this admission?: Yes (5) Depression Qualifiers: Depression Type: unspecified Qualified Code(s): F32.9 - Major depressive disorder, single episode, unspecified Is this a current diagnosis for this admission?: Yes (6) Hypothyroidism Qualifiers: Hypothyroidism type: unspecified Qualified Code(s): E03.9 - Hypothyroidism, unspecified Is this a current diagnosis for this admission?: Yes - Plan Summary Summary: Patient will be admitted to medical floor where she received routine supportive and symptomatic cares. She will receive supplemental oxygen via nasal cannula as needed to maintain an adequate oxygen saturation level. She will receive IV antibiotics utilizing Zithromax and Rocephin. She will be treated with dexamethasone with initial 10 mg dose IV followed by 2 mg IV every 8 hours. She will receive Ativan 1 mg IV every 4 hours as needed for anxiety or restlessness. She will receive morphine sulfate 2 to 4 mg IV every 2 hours as needed for pain. Her usual home medications will be restarted, as appropriate, when her medication list has been verified and reconciled. CBCs, metabolic profiles and additional laboratory and/or radiographic evaluations will be obtained as appropriate.
--- NOTE | 2020-05-13 18:21 | PDOC PROGRESS REPORT ---
Subjective Progress Note for:: 05/13/20 Subjective:: NOEMÍ VIRK is a 69 year old female who presented emergency room with a one- week history of dyspnea. She admits gradually worsening dyspnea, now moderate, over the course of the last week accompanied by a nonproductive cough, associated with ague and worsened by exertion. She denies other associated or accompanying signs and symptoms. She admits prior similar symptoms with a pneumonia. She has not identified any additional aggravating or ameliorating factors for her dyspnea. In the emergency room she was found to have a PO2 of 62 on room air and a CT of her chest showed bilateral groundglass infiltrates. A COVID-19 test was performed and the patient was subsequently admitted to the hospital for further evaluation and treatment. D1 hospital stay 05/12/20. She was seen and examined at bedside. She still reports shortness of breath that has improved since being started on oxygen. Still with cough. Afebrile, denies diarrhea, appetite good. She is currently on 3 L of oxygen via nasal cannula saturating 99%. COVID test pending. CBC unremarkable. CMP unremarkable besides elevated glucose. CRP 73.2 elevated, ferritin 243 normal, d-dimer 0.39 normal, BNP 618 high. Ordered convalescent plasma and remdesivir. CT scan showed diffuse patchy areas of groundglass attenuation predominantly upper lobe distribution consistent with infectious process. D2 hospital stay 05/12/20. Her initial test came back negative. She is still on 3L of NC and coughing. She is afebrile, with good appetite. I reviewed her CT chest and it is showing bilateral groundglass opacities that is classic for COVID-19 pneumonia. She has not received around the severe or convalescent plasma. She does have elevated ferritin and CRP, and her lymphocytes was decreased. In light of her symptoms and CT chest I still suspect that she has cough with pneumonia despite negative testing therefore I have asked the patient's nurse to retest her for COVID. She is currently receiving ceftriaxone and azithromycin for antibiotics. I have spoken to her son Chris and I expl ained the results of the COVID test and the possibility that it may be false negative and that we need to repeat it. Reason For Visit: MULTIFOCAL PNEUMONIA,ACUTE RESPIRATORY FAILURE WIT Physical Exam Vital Signs: Temp Pulse Resp BP Pulse Ox 98.3 F 69 18 114/52 L 100 05/13/20 14:13 05/13/20 14:13 05/13/20 14:13 05/13/20 14:13 05/13/20 14:13 Intake & Output 05/12/20 05/13/20 05/14/20 06:59 06:59 06:59 Intake Total 150 1180 Balance 150 1180 Weight 94.4 kg 95.2 kg General appearance: PRESENT: cooperative, mild distress, obese Head exam: PRESENT: atraumatic, normocephalic Eye exam: PRESENT: EOMI, PERRLA Mouth exam: PRESENT: moist Neck exam: PRESENT: full ROM Respiratory exam: PRESENT: rales, symmetrical, unlabored. ABSENT: wheezes Cardiovascular exam: PRESENT: RRR, +S1, +S2 Pulses: PRESENT: normal radial pulses Extremities exam: ABSENT: +2 edema Musculoskeletal exam: PRESENT: full ROM Neurological exam: PRESENT: alert, awake, oriented to person, oriented to place, oriented to time Psychiatric exam: PRESENT: normal mood Skin exam: PRESENT: normal color Results Laboratory Results: 05/13/20 08:39 05/13/20 08:39 05/13/20 05/13/20 08:39 08:39 WBC 10.5 RBC 4.47 Hgb 13.4 Hct 38.9 MCV 87 MCH 29.9 MCHC 34.3 RDW 12.6 Plt Count 312 Seg Neutrophils % 82.6 H Sodium 138.1 Potassium 3.4 L Chloride 104 Carbon Dioxide 26 Anion Gap 8 BUN 20 Creatinine 0.85 Est GFR ( Amer) > 60 Glucose 111 H Calcium 9.1 Total Bilirubin 0.4 AST 23 Alkaline Phosphatase 79 Total Protein 6.4 Albumin 3.5 05/11/20 05/13/20 17:25 08:39 Troponin I < 0.012 < 0.012 NT-Pro-B Natriuret Pep 618 H Impressions: Chest X-Ray 05/11/20 16:17 IMPRESSION: NO ACUTE RADIOGRAPHIC FINDING IN THE CHEST. Chest/Abdomen CTA 05/11/20 17:14 IMPRESSION: 1. Diffuse patchy areas of ground-glass attenuation predominantly upper lobe distribution consistent with infectious/ inflammatory process. Commonly reported imaging features of COVID-19 pneumonia are present. Other processes such as influenza pneumonia and organizing pneumonia, as can be seen with drug toxicity and connective tissue disease, can cause a similar imaging pattern. 2. No pulmonary embolism. Assessment and Plan - Diagnosis (1) Acute respiratory failure with hypoxia Is this a current diagnosis for this admission?: Yes Plan: - 2/2 COVID pneumonia -CT chest diffuse patchy areas of groundglass attenuation predominantly upper lobe distribution consistent with infectious process commonly seen in COVID-19 pneumonia. -Initial culture testing negative. Despite this I am so convinced she has cough with pneumonia in light of her CT chest findings and symptoms -I requested the nursing instrument maintenance supervisor to repeat her COVID test -Continue O2 support via nasal cannula (2) Pneumonia due to COVID-19 virus Is this a current diagnosis for this admission?: Yes Plan: -Came in due to 1 week history of dyspnea nonproductive cough generalized fatigue. -No known COVID exposure -CT findings diffuse patchy areas of groundglass attenuation predominantly upper lobe distribution consistent with infectious process commonly seen in COVID-19 pneumonia. - CRP 73.2 elevated, ferritin 243 normal, d-dimer 0.39 normal, BNP 618 high -Given age, and increasing oxygen needs, and current CT findings, there is a high likelihood that she does have COVID pneumonia -COVID negative. I asked the nurses to re-swab her since my suspicion is high despite negative test -Procalcitonin pending -urine legionella and urine strep pending -Continue isolation -Empiric antibiotics pending blood culture -Start vitamin C, vitamin D, zinc -Started on dexamethasone 6 mg IV daily -will hold off on convalesent plasma and remdesivir -Patient aware of poor prognosis due to her age, obesity, and other comorbid ities. (3) Chronic back pain Qualifiers: Back pain location: back pain in unspecified location Back pain laterality: unspecified Qualified Code(s): M54.9 - Dorsalgia, unspecified; G89.29 - Other chronic pain Is this a current diagnosis for this admission?: Yes Plan: -Takes oxycodone 5 mg IR as needed for back pain -resumed (4) Hyperlipidemia Qualifiers: Hyperlipidemia type: unspecified Qualified Code(s): E78.5 - Hyperlipidemia, unspecified Is this a current diagnosis for this admission?: Yes Plan: -crestor resumed (5) Depression Qualifiers: Depression Type: unspecified Qualified Code(s): F32.9 - Major depressive disorder, single episode, unspecified Is this a current diagnosis for this admission?: Yes Plan: -Fluoxetine and buspirone resumed (6) Hypothyroidism Qualifiers: Hypothyroidism type: unspecified Qualified Code(s): E03.9 - Hypothyroidism, unspecified Is this a current diagnosis for this admission?: Yes Plan: -Levothyroxine resumed - Plan Summary Summary: This is a 69-year-old female with past medical history of hyperthyroidism hypertension who was admitted due to a week history of dyspnea and desaturation when she was in the ED. she was started on nasal cannula. CAT scan of her chest showed diffuse patchy areas of groundglass attenuation predominantly upper lobe distribution consistent with infectious inflammatory process findings commonly seen on COVID-19 pneumonia . She was admitted to the COVID unit started on dexamethasone Rocephin and Zithromax. Her COVID test came back negative today. However given her findings on CT chest and her symptoms I still suspect that she may have COVID pneumonia despite negative testing. I have asked the nurse to re-swab her. I have held off on convalescent plasma and rammed the severe pending repeat COVID testing. Plan to continue her on current antibiotics and dexamethasone. I also ordered urine Legionella, urine strep, procalcitonin to further guide us in the treatment of her current pneumonia. - Time Time Spent with patient: 25-34 minutes Anticipated Discharge Disposition: Home, Self Care Anticipated Discharge Timeframe: to be determined
[2020-05-13] MEDS: CEFTRIAXONE 1 GM/D5W RTU 1 GM/50 ML RTUPB IV SCH (21:36)
[2020-05-13] MEDS: AZITHROMYCIN 500 MG in DEXTROSE 5%-WATER 250 ML IV SCH (21:37)
[2020-05-14] MEDS: HEPARIN SOD (PORCINE) 5,000 UNIT/ML 1 ML VIAL SUBCUT SCH ×3 (05:35→22:24)
[2020-05-14] MEDS: LEVOTHYROXINE SODIUM 0.075 MG TABLET PO SCH (05:35)
[2020-05-14 09:54] LABS: ABSOLUTE BASOPHILS # (AUTO) 0.1 10^3/uL (0.0-0.2); ABSOLUTE EOSINOPHILS # (AUTO) 0.1 10^3/uL (0.0-0.6); ABSOLUTE LYMPHOCYTES (AUTO) 1.3 10^3/uL (0.5-4.7); ABSOLUTE MONOCYTES (AUTO) 0.6 10^3/uL (0.1-1.4); ABSOLUTE NEUT (AUTO) 6.7 10^3/uL (1.7-8.2); EOSINOPHILS % (AUTO) 0.6 % (0-6); HEMATOCRIT 38.6 % (36.0-47.0); HEMOGLOBIN 13.4 g/dL (12.0-15.5); LYMPHOCYTES % (AUTO) 14.5 % (13-45); MEAN CORPUSCULAR HEMOGLOBIN 30.1 pg (27.0-33.4); MEAN CORPUSCULAR HGB CONC 34.8 g/dL (32.0-36.0); MEAN CORPUSCULAR VOLUME 87 fl (80-97); MONOCYTES % (AUTO) 6.8 % (3-13); PLATELET COUNT 351 10^3/uL (150-450); RED BLOOD COUNT 4.46 10^6/uL (3.72-5.28); RED CELL DISTRIBUTION WIDTH 12.9 % (11.5-14.0); SEGMENTED NEUTROPHILS % (AUTO) 77.1 % (42-78); TOTAL CELLS COUNTED % (AUTO) 100 %; WHITE BLOOD COUNT 8.7 10^3/uL (4.0-10.5)
[2020-05-14 10:16] LABS: ALBUMIN 3.7 g/dL (3.5-5.0); ALKALINE PHOSPHATASE 83 U/L (38-126); ANION GAP 8 (5-19); ASPARTATE AMINO TRANSFERASE 26 U/L (14-36); BILIRUBIN,DIRECT 0.3 mg/dL (0.0-0.4); BILIRUBIN,TOTAL 0.4 mg/dL (0.2-1.3); BLOOD UREA NITROGEN 24 mg/dL (7-20); C-REACTIVE PROTEIN 22.7 mg/L (<10.0); CALCIUM 9.2 mg/dL (8.4-10.2); CARBON DIOXIDE 26 mmol/L (22-30); CHLORIDE 104 mmol/L (98-107); GLUCOSE 130 mg/dL (75-110); POTASSIUM 3.9 mmol/L (3.6-5.0); TOTAL PROTEIN 6.6 g/dL (6.3-8.2)
[2020-05-14] MEDS: GABAPENTIN 400 MG CAPSULE PO SCH ×2 (10:48→18:46)
[2020-05-14] MEDS: ZINC SULFATE 220 MG CAPSULE PO SCH (10:48)
[2020-05-14] MEDS: CHOLECALCIFEROL (D3) 400 UNIT TABLET PO SCH (10:48)
[2020-05-14] MEDS: BUSPIRONE HCL 10 MG TABLET PO SCH ×3 (10:48→18:47)
[2020-05-14] MEDS: HYDROXYZINE HCL 10 MG TABLET PO SCH ×2 (10:48→18:47)
[2020-05-14] MEDS: FLUOXETINE HCL 20 MG CAPSULE PO SCH (10:48)
[2020-05-14] MEDS: DEXAMETHASONE SOD PHOS INJ 10 MG/1 ML VIAL IV SCH (10:49)
[2020-05-14] MEDS: FAMOTIDINE 20 MG TABLET PO SCH ×2 (10:49→22:24)
[2020-05-14] MEDS: ASCORBIC ACID 500 MG TABLET PO SCH ×2 (10:49→18:47)
[2020-05-14] MEDS: DOCUSATE SODIUM 100 MG CAPSULE PO SCH ×2 (10:49→18:46)
--- NOTE | 2020-05-14 17:39 | PDOC PROGRESS REPORT ---
Subjective Progress Note for:: 05/14/20 Subjective:: Patient is a 69-year-old female with a past medical history of hyperlipidemia, obesity, hypothyroidism, arthritis, depression who was admitted 05/11/2020 with acute respiratory failure with hypoxia secondary to multifocal pneumonia. Patient was seen on afternoon rounds. She is found resting in bed, comfortably, on supplemental oxygen via nasal cannula at 1 L/min by extended tubing. She reports that she is feeling well today; she has been ambulatory in the room w ithout increased work of breathing. She does report occasional productive cough of clear, thin, sputum associated substernal chest discomfort. Otherwise, she states she is feeling well is hopeful to discharge home soon. She denies fever, chills, palpitations, dyspnea, orthopnea, abdominal pain, na usea vomiting diarrhea. Patient has been afebrile x48 hours. She has no other questions or concerns at this time. No concerns per nursing. Reason For Visit: MULTIFOCAL PNEUMONIA,ACUTE RESPIRATORY FAILURE WIT Physical Exam Vital Signs: Temp Pulse Resp BP Pulse Ox 97.9 F 69 17 118/53 L 98 05/14/20 11:30 05/14/20 11:30 05/14/20 11:30 05/14/20 11:30 05/14/20 11:30 Intake & Output 05/13/20 05/14/20 05/15/20 06:59 06:59 06:59 Intake Total 1480 1370 Output Total 900 Balance 1480 470 Weight 95.2 kg 95.6 kg General appearance: PRESENT: no acute distress, cooperative, obese, well- developed, well-nourished Head exam: PRESENT: atraumatic, normocephalic Eye exam: PRESENT: conjunctiva pink, EOMI, PERRLA. ABSENT: scleral icterus Mouth exam: PRESENT: moist, tongue midline Respiratory exam: PRESENT: clear to auscultation wil, symmetrical, unlabored. ABSENT: rales, rhonchi, wheezes Cardiovascular exam: PRESENT: RRR, +S1, +S2. ABSENT: diastolic murmur, rubs, systolic murmur Pulses: PRESENT: normal dorsalis pedis pul Vascular exam: PRESENT: normal capillary refill Extremities exam: PRESENT: full ROM. ABSENT: calf tenderness, clubbing, pedal edema Musculoskeletal exam: PRESENT: ambulatory Neurological exam: PRESENT: alert, awake, oriented to person, oriented to place, oriented to time, oriented to situation, CN II-XII grossly intact. ABSENT: motor sensory deficit Psychiatric exam: PRESENT: appropriate affect, normal mood. ABSENT: homicidal ideation, suicidal ideation Skin exam: PRESENT: dry, intact, warm. ABSENT: cyanosis, rash Results Laboratory Results: 05/14/20 09:23 05/14/20 09:23 05/14/20 05/14/20 09:23 09:23 WBC 8.7 RBC 4.46 Hgb 13.4 Hct 38.6 MCV 87 MCH 30.1 MCHC 34.8 RDW 12.9 Plt Count 351 Seg Neutrophils % 77.1 Sodium 137.9 Potassium 3.9 Chloride 104 Carbon Dioxide 26 Anion Gap 8 BUN 24 H Creatinine 0.89 Est GFR ( Amer) > 60 Glucose 130 H Calcium 9.2 Ferritin 256.00 Total Bilirubin 0.4 AST 26 Alkaline Phosphatase 83 C-Reactive Protein 22.7 H Total Protein 6.6 Albumin 3.7 05/11/20 05/13/20 17:25 08:39 Troponin I < 0.012 < 0.012 NT-Pro-B Natriuret Pep 618 H Impressions: Chest X-Ray 05/11/20 16:17 IMPRESSION: NO ACUTE RADIOGRAPHIC FINDING IN THE CHEST. Chest/Abdomen CTA 05/11/20 17:14 IMPRESSION: 1. Diffuse patchy areas of ground-glass attenuation predominantly upper lobe distribution consistent with infectious/ inflammatory process. Commonly reported imaging features of COVID-19 pneumonia are present. Other processes such as influenza pneumonia and organizing pneumonia, as can be seen with drug toxicity and connective tissue disease, can cause a similar imaging pattern. 2. No pulmonary embolism. Assessment and Plan - Diagnosis (1) Pneumonia due to COVID-19 virus Is this a current diagnosis for this admission?: Yes Plan: -Came in due to 1 week history of dyspnea nonproductive cough generalized fatigue. -No known COVID exposure CT findings diffuse patchy areas of groundglass attenuation predominantly upper lobe distribution consistent with infectious process commonly seen in COVID-19 pneumonia. CRP 73.2 elevated, ferritin 243 normal, d-dimer 0.39 normal, BNP 618 high COVID negative. Repeat COVID pending Procalcitonin pending Urine legionella and urine strep pending Blood cultures negative at 48 hours Provide supplemental oxygen as needed maintain saturations greater than 89%. Currently maintaining oxygen saturations on 1 L per nasal cannula. Have asked nursing to wean. As needed nebulizer treatments. Begin weaning dexamethasone Zinc, vitamin D, vitamin C, and melatonin supplementation. Encourage pulmonary toilet. Isolation precautions. Receiving IV azithromycin as part of the CAP Bundle; has not received convalescent serum or remdesivir (2) Multifocal pneumonia Is this a current diagnosis for this admission?: Yes Plan: COVID testing as above. Blood cultures negative at 48 hours Sputum cultures pending Urine strep pending Urine Legionella pending Patient is empirically placed on IV azithromycin and Rocephin. Day #3. Patient has been afebrile x48 hours with negative cultures; will discontinue ceftriaxone tomorrow if she continues to have clinical improvement. As needed nebulizer treatments. Robitussin as needed. Pulmonary toilet is encouraged with incentive spirometer, flutter valve, early ambulation. Remaining evaluation management as above. (3) Acute respiratory failure with hypoxia Is this a current diagnosis for this admission?: Yes Plan: Secondary to #1&2 -CT chest diffuse patchy areas of groundglass attenuation predominantly upper lobe distribution consistent with infectious process commonly seen in COVID-19 pneumonia. Evaluation and management as above. (4) Hypothyroidism Qualifiers: Hypothyroidism type: unspecified Qualified Code(s): E03.9 - Hypothyroidism, unspecified Is this a current diagnosis for this admission?: Yes Plan: Continue home dose Levothyroxine (5) Chronic back pain Qualifiers: Back pain location: back pain in unspecified location Back pain laterality: unspecified Qualified Code(s): M54.9 - Dorsalgia, unspecified; G89.29 - Other chronic pain Is this a current diagnosis for this admission?: Yes Plan: Continue home dose oxycodone Encourage mobility/ambulation Nonpharmocological management (6) Depression Qualifiers: Depression Type: unspecified Qualified Code(s): F32.9 - Major depressive disorder, single episode, unspecified Is this a current diagnosis for this admission?: Yes Plan: Home dose Fluoxetine and buspirone continued (7) Hyperlipidemia Qualifiers: Hyperlipidemia type: unspecified Qualified Code(s): E78.5 - Hyperlipidemia, unspecified Is this a current diagnosis for this admission?: Yes Plan: Home dose crestor resumed - Time Time Spent with patient: 25-34 minutes Medications reviewed and adjusted accordingly: Yes Anticipated Discharge Disposition: Home, Self Care Anticipated Discharge Timeframe: within 48 hours
[2020-05-14] MEDS: CEFTRIAXONE 1 GM/D5W RTU 1 GM/50 ML RTUPB IV SCH (22:24)
[2020-05-15] MEDS: AZITHROMYCIN 500 MG in DEXTROSE 5%-WATER 250 ML IV SCH (00:01)
[2020-05-15] MEDS: LEVOTHYROXINE SODIUM 0.075 MG TABLET PO SCH (06:02)
[2020-05-15] MEDS: HEPARIN SOD (PORCINE) 5,000 UNIT/ML 1 ML VIAL SUBCUT SCH (06:02)
[2020-05-15] MEDS: ASCORBIC ACID 500 MG TABLET PO SCH (09:18)
[2020-05-15] MEDS: FLUOXETINE HCL 20 MG CAPSULE PO SCH (09:18)
[2020-05-15] MEDS: FAMOTIDINE 20 MG TABLET PO SCH (09:18)
[2020-05-15] MEDS: ZINC SULFATE 220 MG CAPSULE PO SCH (09:18)
[2020-05-15] MEDS: GABAPENTIN 400 MG CAPSULE PO SCH (09:18)
[2020-05-15] MEDS: DOCUSATE SODIUM 100 MG CAPSULE PO SCH (09:18)
[2020-05-15] MEDS: CHOLECALCIFEROL (D3) 400 UNIT TABLET PO SCH (09:18)
[2020-05-15] MEDS: BUSPIRONE HCL 10 MG TABLET PO SCH (09:19)
[2020-05-15] MEDS: HYDROXYZINE HCL 10 MG TABLET PO SCH (09:19)
[2020-05-15] MEDS ORDERED: DEXAMETHASONE SOD PHOS INJ 10 MG/1 ML VIAL IV SCH (10:00)
[2020-05-15] MEDS ORDERED: DEXAMETHASONE SOD PHOSPHATE INJ 4 MG/1 ML VIAL IV SCH (10:00)
[2020-05-15 10:12] VITALS: BP 132/62
--- NOTE | 2020-05-15 16:19 | PDOC DISCHARGE SUMMARY ---
Impression - Admit/DC Date/PCP Admission Date/Primary Care Provider: 05/11/20 21:41 KAYODE BERRIOS Discharge Date: 05/15/20 - Discharge Diagnosis (1) Pneumonia due to COVID-19 virus Is this a current diagnosis for this admission?: No (2) Multifocal pneumonia Is this a current diagnosis for this admission?: Yes (3) Acute respiratory failure with hypoxia Is this a current diagnosis for this admission?: Yes (4) Hypothyroidism Is this a current diagnosis for this admission?: Yes (5) Chronic back pain Is this a current diagnosis for this admission?: Yes (6) Depression Is this a current diagnosis for this admission?: Yes (7) Hyperlipidemia Is this a current diagnosis for this admission?: Yes - Additional Information Resuscitation Status: Full Code Discharge Diet: Cardiac Discharge Activity: Activity As Tolerated, Balance Activity w/Rest, Slowly Increase Activity Referrals: KRISTINE CONSTANTINO NP-C [Primary Care Provider] - 05/24/20 9:40 am Prescriptions: Azithromycin 250 mg PO DAILY #3 tablet Albuterol Sulfate [Ventolin Hfa 8 gm Mdi] 2 puff IH Q4HP PRN #1 inhaler PRN Reason: dyspnea, wheezing Home Medications: Rosuvastatin Calcium [Crestor 10 mg Tablet] 10 mg PO DAILY 04/19/14 Fluoxetine HCl [Prozac 20 mg Capsule] 40 mg PO DAILY 05/01/14 Buspirone HCl [Buspar 10 mg Tablet] 10 mg PO TID 05/12/20 Gabapentin [Neurontin 400 mg Capsule] 400 mg PO BID 05/12/20 Hydroxyzine HCl [Atarax 10 mg Tablet] 10 mg PO BID 05/12/20 Levothyroxine Sodium [Synthroid 0.075 mg Tablet] 0.075 mg PO DAILY 05/12/20 Oxycodone HCl [Oxy-Ir 5 mg Tablet] 5 mg PO Q6HP PRN MDD MAX OF 3 DAILY 05/12/20 Acetaminophen [Tylenol 325 mg Tablet] 650 mg PO Q4HP PRN tablet 05/15/20 Albuterol Sulfate [Ventolin Hfa 8 gm Mdi] 2 puff IH Q4HP PRN #1 inhaler 05/15/20 Azithromycin 250 mg PO DAILY #3 tablet 05/15/20 Guaifenesin [Robitussin Syrup 200 mg/10 ml Ud Cup] 200 mg PO QIDP PRN udc 05/15/20 History of Present Illiness History of Present Illness: Per H&P by Dr. Goel: NOEMÍ VIRK is a 69 year old female who presented emergency room with a one-week history of dyspnea. She admits gradually worsening dyspnea, now moderate, over the course of the last week accompanied by a nonproductive cough, associated with ague and worsened by exertion. She denies other associated or accompanying signs and symptoms. She admits prior similar symptoms with a pneumonia. She has not identified any additional aggravating or ameliorating factors for her dyspnea. In the emergency room she was found to have a PO2 of 62 on room air and a CT of her chest showed bilateral groundglass infiltrates. A COVID-19 test was performed and the patient was subsequently admitted to the hospital for further evaluation and treatment. Hospital Course Hospital Course: (1) Pneumonia due to COVID-19 virus Ruled out. -Came in due to 1 week history of dyspnea nonproductive cough generalized fatigue. -No known COVID exposure CT findings diffuse patchy areas of groundglass attenuation predominantly upper lobe distribution consistent with infectious process commonly seen in COVID-19 pneumonia. CRP 73.2 elevated, ferritin 243 normal, d-dimer 0.39 normal, BNP 618 high COVID negative. Repeat COVID negative. Procalcitonin 0.06 Urine legionella pending Blood cultures negative at 72 hours Patient was supported with supplemental oxygen, nebulizer treatments, steroid therapy, and Zinc, vitamin D, vitamin C, and melatonin supplementation. Received IV azithromycin as part of the CAP Bundle; did not receive convalescent serum or remdesivir (2) Multifocal pneumonia COVID testing as above. Blood cultures negative at 72 hours Sputum cultures not obtained Urine Legionella pending Patient was empirically placed on IV azithromycin and Rocephin. Received 3 days of Rocephin Discharged with Rx for Azithromycin to complete course of therapy following discharge. She was supported with oxygen, as needed nebulizer treatments, Robitussin and aggressive pulmonary toilet. Remaining evaluation management as above. (3) Acute respiratory failure with hypoxia Resolved; now maintaining oxygen saturation on room air while ambulatory. Secondary to #1&2 -CT chest diffuse patchy areas of groundglass attenuation predominantly upper lobe distribution consistent with infectious process commonly seen in COVID-19 pneumonia. Evaluation and management as above. (4) Hypothyroidism Continue home dose Levothyroxine (5) Chronic back pain Continue home dose oxycodone Encourage mobility/ambulation Nonpharmocological management Outpatient follow up (6) Depression Home dose Fluoxetine and buspirone continued (7) Hyperlipidemia Home dose crestor resumed Physical Exam Vital Signs: Temp Pulse Resp BP Pulse Ox 97.7 F 63 19 132/62 H 95 05/15/20 10:10 05/15/20 10:10 05/15/20 10:10 05/15/20 10:10 05/15/20 10:10 Intake & Output 05/14/20 05/15/20 05/16/20 06:59 06:59 06:59 Intake Total 1370 920 Output Total 900 Balance 470 920 Weight 95.6 kg 93.8 kg General appearance: PRESENT: no acute distress, well-developed, well-nourished Head exam: PRESENT: atraumatic, normocephalic Eye exam: PRESENT: conjunctiva pink, EOMI, PERRLA. ABSENT: scleral icterus Ear exam: PRESENT: normal external ear exam Mouth exam: PRESENT: moist, tongue midline Neck exam: ABSENT: carotid bruit, JVD, lymphadenopathy, thyromegaly Respiratory exam: PRESENT: clear to auscultation wil. ABSENT: rales, rhonchi, wheezes Cardiovascular exam: PRESENT: RRR. ABSENT: diastolic murmur, rubs, systolic murmur Pulses: PRESENT: normal dorsalis pedis pul Vascular exam: PRESENT: normal capillary refill GI/Abdominal exam: PRESENT: normal bowel sounds, soft. ABSENT: distended, guarding, mass, organolmegaly, rebound, tenderness Rectal exam: PRESENT: deferred Extremities exam: PRESENT: full ROM. ABSENT: calf tenderness, clubbing, pedal edema Neurological exam: PRESENT: alert, awake, oriented to person, oriented to place, oriented to time, oriented to situation, CN II-XII grossly intact. ABSENT: motor sensory deficit Psychiatric exam: PRESENT: appropriate affect, normal mood. ABSENT: homicidal ideation, suicidal ideation Skin exam: PRESENT: dry, intact, warm. ABSENT: cyanosis, rash Results Laboratory Results: WBC 8.7 10^3/uL (4.0-10.5) 05/14/20 09:23 RBC 4.46 10^6/uL (3.72-5.28) 05/14/20 09: Hgb 13.4 g/dL (12.0-15.5) 05/14/20 09:23 Hct 38.6 % (36.0-47.0) 05/14/20 09: MCV 87 fl (80-97) 05/14/20 09:23 MCH 30.1 pg (27.0-33.4) 05/14/20 09: MCHC 34.8 g/dL (32.0-36.0) 05/14/20 09: RDW 12.9 % (11.5-14.0) 05/14/20 09: Plt Count 351 10^3/uL (150-450) 05/14/20 09: Lymph % (Auto) 14.5 % (13-45) 05/14/20 09: [place] % (Auto) 6.8 % (3-13) 05/14/20 09: Eos % (Auto) 0.6 % (0-6) 05/14/20 09: Baso % (Auto) 1.0 % (0-2) 05/14/20 09: Absolute Neuts (auto) 6.7 10^3/uL (1.7-8.2) 05/14/20 09: Absolute Lymphs (auto) 1.3 10^3/uL (0.5-4.7) 05/14/20 09: Absolute Monos (auto) 0.6 10^3/uL (0.1-1.4) 05/14/20 09: Absolute Eos (auto) 0.1 10^3/uL (0.0-0.6) 05/14/20 09: Absolute Basos (auto) 0.1 10^3/uL (0.0-0.2) 05/14/20 09: Seg Neutrophils % 77.1 % (42-78) 05/14/20 09: PT 13.6 SEC (11.4-15.4) 05/11/20 17:25 INR 1.02 05/11/20 17:25 APTT 33.9 SEC (23.5-35.8) 05/11/20 17:25 D-Dimer 0.49 ug/mL (0.00-0.50) 05/14/20 09:23 Carbonic Acid 0.88 mmol/L (1.05-1.35) L 05/11/20 17:20 HCO3/H2CO3 Ratio 24:1 05/11/20 17:20 ABG pH 7.49 (7.35-7.45) H 05/11/20 17:20 ABG pCO2 29.4 mmHg (35-45) L 05/11/20 17:20 ABG pO2 62.6 mmHg (80-100) L 05/11/20 17:20 ABG HCO3 21.9 mmol/L (20-24) 05/11/20 17:20 ABG Total CO2 22.8 mmol/L (21-25) 05/11/20 17:20 ABG O2 Saturation 93.9 % (94-98) L 05/11/20 17:20 ABG Base Excess -0.3 mmol/L 05/11/20 17:20 FiO2 21% 05/11/20 17:20 Sodium 137.9 mmol/L (137-145) 05/14/20 09:23 Potassium 3.9 mmol/L (3.6-5.0) 05/14/20 09:23 Chloride 104 mmol/L (98-107) 05/14/20 09:23 Carbon Dioxide 26 mmol/L (22-30) 05/14/20 09:23 Anion Gap 8 (5-19) 05/14/20 09:23 BUN 24 mg/dL (7-20) H 05/14/20 09:23 Creatinine 0.89 mg/dL (0.52-1.25) 05/14/20 09:23 Est GFR ( Amer) > 60 (>60) 05/14/20 09:23 Est GFR (MDRD) Non-Af > 60 (>60) 05/14/20 09:23 Glucose 130 mg/dL (75-110) H 05/14/20 09:23 Calcium 9.2 mg/dL (8.4-10.2) 05/14/20 09:23 Ferritin 256.00 ng/mL (11.1-264.0) 05/14/20 09:23 Total Bilirubin 0.4 mg/dL (0.2-1.3) 05/14/20 09:23 Direct Bilirubin 0.3 mg/dL (0.0-0.4) 05/14/20 09:23 Neonat Total Bilirubin Not Reportable 05/14/20 09:23 Neonat Direct Bilirubin Not Reportable 05/14/20 09:23 Neonat Indirect Bili Not Reportable 05/14/20 09:23 AST 26 U/L (14-36) 05/14/20 09:23 ALT 20 U/L (<35) 05/14/20 09:23 Alkaline Phosphatase 83 U/L (38-126) 05/14/20 09:23 Troponin I < 0.012 ng/mL 05/13/20 08:39 C-Reactive Protein 22.7 mg/L (<10.0) H 05/14/20 09:23 NT-Pro-B Natriuret Pep 618 pg/mL (<125) H 05/11/20 17:25 Total Protein 6.6 g/dL (6.3-8.2) 05/14/20 09:23 Albumin 3.7 g/dL (3.5-5.0) 05/14/20 09:23 Procalcitonin 0.06 ng/mL (0.00-0.08) 05/12/20 08:28 COVID-19 Source See comment 05/13/20 12:30 COVID-19 ([facility]) Not Detected (Not Detect) 05/13/20 12:30 Blood Type O POSITIVE 05/12/20 13:07 05/11/20 05/13/20 17:25 08:39 Troponin I < 0.012 < 0.012 NT-Pro-B Natriuret Pep 618 H Impressions: Chest X-Ray 05/11/20 16:17 IMPRESSION: NO ACUTE RADIOGRAPHIC FINDING IN THE CHEST. Chest/Abdomen CTA 05/11/20 17:14 IMPRESSION: 1. Diffuse patchy areas of ground-glass attenuation predominantly upper lobe distribution consistent with infectious/ inflammatory process. Commonly reported imaging features of COVID-19 pneumonia are present. Other processes such as influenza pneumonia and organizing pneumonia, as can be seen with drug toxicity and connective tissue disease, can cause a similar imaging pattern. 2. No pulmonary embolism. Plan Plan of Treatment: Patient is discharged home in stable condition. She is instructed to follow-up with primary care provider within 1 week. Complete full course of antibiotic therapy. Take medications as prescribed. Eat a heart healthy diet. Return to emergency department, as needed, for concerning symptoms. Time Spent: Greater than 30 Minutes Stroke Is this a Stroke Patient?: No Acute Heart Failure Is this a Heart Failure Patient?: No
== END 2020-05-15 11:00 | disposition home or self-care (01) | DRG 193 ==
LOC: ER 15:52 → EH 21:41 → 3W 05-12 00:32 → 3N 05-13 14:00
PROVIDERS: ADMIT Emergency Medicine; ATTEND Registered Nurse
DX: J18.9 Pneumonia, unspecified organism (principal); J96.01 Acute respiratory failure with hypoxia; E78.5 Hyperlipidemia, unspecified; E66.9 Obesity, unspecified; M15.9 Polyosteoarthritis, unspecified; F32.9 Major depressive disorder, single episode, unspecified; G89.29 Other chronic pain; M54.9 Dorsalgia, unspecified; E03.9 Hypothyroidism, unspecified; Z20.828 Contact with and (suspected) exposure to other viral communicable diseases
CPT/HCPCS: 36415; 36600; 71045; 71275; 80048; 80053; 82728; 82803; 83880; 84145; 84484; 85025; 85027; 85379; 85610; 85730; 86140; 86900; 86901; 87040; 87070; 87635; 93005; 93010; 99285; C9803; J0456; J0696; J1100; J1644; J3490; J7060